=== PATIENT | male | born 1945 | race Caucasian/White ===

== ENCOUNTER 2016-12-06 17:00 | Observation (INO) | payer OTHER ==
[~2016-12-06] VITALS: Ht 180.3 cm; Wt 109.0 kg
[2016-12-06] VITALS (90 sets, daily range): BP systolic 130–151; BP diastolic 72–85; PULSE 77–86; TEMP 97.5–98.7; O2SAT 87–98
[2016-12-06] MEDS ORDERED: TENORMIN 2525 MG/TAB PO (17:05)
[2016-12-06] MEDS ORDERED: ASPIRIN E.C. 8181 MG PO (17:05)
[2016-12-06] MEDS ORDERED: HCTZ 25MG TAB25 MG PO (17:05)
[2016-12-06] MEDS ORDERED: NIACOR500 MG PO (17:06)
[2016-12-06 18:41] LABS: ADJUSTED CALCIUM 9.1 mg/dL (8.4-10.2); ALBUMIN 3.3 gm/dL (3.5-5.0); BILIRUBIN,TOTAL 0.8 mg/dL (0.0-1.0); CALCIUM 8.5 mg/dL (8.4-10.2); CREATININE, serum 1.01 mg/dL (0.66-1.25); POTASSIUM 3.6 mmol/L (3.4-5.0)
[2016-12-07 00:53] VITALS: BP 120/60; PULSE 66; TEMP 98.7
[2016-12-07 04:40] VITALS: BP 156/75; PULSE 60; TEMP 98.3
[2016-12-07 07:33] LABS: HEMATOCRIT 37.9 % (42.0-52.0); HEMOGLOBIN 12.6 g/dl (13.5-18.0); MEAN CELL VOLUME 95 fl (80.0-100.0); MEAN CORPUSCULAR HEMOGLOBIN 32 pg (27.0-31.0); MEAN CORPUSCULAR HGB CONC 33 g/dl (33.0-37.0); MEAN PLATELET VOLUME 12.1 fl (7.4-10.4); PLATELET COUNT 87 K/mm3 (130-400); REDCELL DISTRIBUTION WIDTH-CV 13.2 % (11.5-14.5); WHITE BLOOD COUNT 8.2 K/mm3 (4.8-10.8)
[2016-12-07 07:42] LABS: CALCIUM 8.9 mg/dL (8.4-10.2); CREATININE, serum 0.96 mg/dL (0.66-1.25); POTASSIUM 3.7 mmol/L (3.4-5.0)
[2016-12-07 08:25] VITALS: BP 116/65; PULSE 66; TEMP 98.5
== END 2016-12-07 11:24 | disposition home or self-care (01) ==
LOC: MEDICAL 17:00 → ICU 17:00 → MEDICAL 18:41
PROVIDERS: Internal Medicine Cardiovascular Disease
DX: J06.9 Acute upper respiratory infection, unspecified (principal); I10 Essential (primary) hypertension; F17.210 Nicotine dependence, cigarettes, uncomplicated
CPT/HCPCS: 99222-AI; G0378; G0379; J1650